=== PATIENT | female | born 1950 ===

== ENCOUNTER 2020-11-26 07:55 | Outpatient (CLI) | payer OTHER | END 2020-11-26 07:56 | disposition home or self-care (01) | LOC: NUCLEAR 07:55 | PROVIDERS: ATTEND Internal Medicine Cardiovascular Disease | DX: I65.29 Occlusion and stenosis of unspecified carotid artery (principal); I10 Essential (primary) hypertension; E78.00 Pure hypercholesterolemia, unspecified; I25.10 Atherosclerotic heart disease of native coronary artery without angina pectoris; Z98.61 Coronary angioplasty status | CPT/HCPCS: 78452; 93017; A9500; J0153 ==